=== PATIENT | male | born 1995 | race Caucasian/White ===

== ENCOUNTER 2024-03-26 15:33 | Emergency (ER) | payer OTHER, SELFPAY ==
[2024-03-26 15:51] VITALS: BP 122/60; PULSE 75; RESP 20; TEMP 36.2; O2SAT 95; BMI 26.4
--- OUTSIDE RECORDS SUMMARY | 2024-03-26 16:52 | XMS_ITS | Continuity of Care Document ---
Author Organization [facility] Address [address] [place] [address] Phone Support Name Relationship Address Phone MARIANNA LATHAM Life [place] [address] Pcp-Tamera, Primary Care Provider Unknown Ravinder Mendiola Emergency Provider [place] [address] Allergies, Adverse Reactions, Alerts Allergen Type Severity Reaction Last Updated Verified Status ibuprofen Allergy Unknown UNKNOWN REACTION November 18, 2019 Yes Active Dairy Allergy Unknown UNKNOWN REACTION November 18, 2019 No Active Medications Medication Status Dose Units Route Sig Qty Days Start Date End Date Instructions Acetaminophen Active 1 - 2 TAB Oral EVERY 6 HOURS 30 November 18, 2019 8:55pm Take 1-2 500 mg tablets every 6 hours for increased fever. Acetaminophen Active 1 - 2 TAB Oral EVERY 6 HOURS 30 November 18, 2019 8:58pm Problems Active Problems Medical Problem Onset Date Status Viral illness Active Procedures Procedure Date Performed Status XR chest 1V portable November 18, 2019 active Influenza Virus Type A Antigen November 18, 2019 completed Influenza Virus Type B Antigen November 18, 2019 completed Relevant Diagnostic Tests and/or Laboratory Data Laboratory Results Test Date/Time Result Interpretation Reference Range Result Comment Performing Site Add-On Test Request November 18, 2019 9:15pm Added test [address] [address] White Blood Count November 18, 2019 6:55pm 9.9 X10 3/uL 4.5-11.[address] [address] Red Blood Count November 18, 2019 6:55pm 4.72 X10 6/uL 4.00-5.[address] [address] Hemoglobin November 18, 2019 6:55pm 15.5 g/dl 13.0-17.0 [facility] [place], [address] [facility] [place] [address] Hematocrit November 18, 2019 6:55pm 42.5 % 37.5-50.0 [facility] [place], [address] [facility] [address] Mean Corpuscular Volume November 18, 2019 6:55pm 90.0 fl 80.0-100.0 [facility] [place], [address] [facility] [address] Mean Corpuscular Hemoglobin November 18, 2019 6:55pm 32.8 pg 27.0-34.0 [facility] [place], [address] [facility] [place] [address] Mean Corpuscular Hemoglobin Concent November 18, 2019 6:55pm 36.5 g/dl 31.0-36.0 [facility] [place], [address] [facility] [place] [address] Red Cell Distribution Width November 18, 2019 6:55pm 11.8 % 11.5-15.0 [facility] [place], [address] [facility] [place] [address] Platelet Count November 18, 2019 6:55pm 285 X10 3/uL 150-400 [facility] [place], [address] [facility] [address] Neutrophils (%) (Auto) November 18, 2019 6:55pm 85.5 % [facility] [place], [address] [facility] [place] [address] Lymphocytes (%) (Auto) November 18, 2019 6:55pm 10.1 % [facility] [place], [address] [facility] [place] [address] Monocytes (%) (Auto) November 18, 2019 6:55pm 4.1 % [facility] [place], [address] [facility] [address] Eosinophils (%) (Auto) November 18, 2019 6:55pm 0.1 % [facility] [place], [address] [facility] [place] [address] Basophils (%) (Auto) November 18, 2019 6:55pm 0.2 % [facility] [place], [address] [facility] [place] [address] Neutrophils # (Auto) November 18, 2019 6:55pm 8.5 X10 3/uL 1.5-7.8 [facility] [place], [address] [place] [address] Lymphocytes # (Auto) November 18, 2019 6:55pm 1.0 X10 3/uL 1.0-4.8 [facility] [place], [address] [facility] [address] Monocytes # (Auto) November 18, 2019 6:55pm 0.4 X10 3/uL 0.0-0.8 [facility] [place], [address] [facility] [address] Eosinophils # (Auto) November 18, 2019 6:55pm 0.0 X10 3/uL 0.0-0.5 [facility] [place], [address] [facility] [address] Basophils # (Auto) November 18, 2019 6:55pm 0.0 X10 3/uL 0.0-0.2 [facility] [place], [address] [place] [address] Urine Color November 18, 2019 9:00pm Yellow Yellow [facility] [place], [address] [place] [address] Urine Clarity November 18, 2019 9:00pm Clear Clear [facility] [place], [address] [place] [address] Urine pH November 18, 2019 9:00pm 7.0 5.0-8.0 [facility] [place], [address] [place] [address] Urine Specific [place] November 18, 2019 9:00pm 1.021 1.003-1.03 0 [facility] [place], [address] [place] [address] Urine Blood November 18, 2019 9:00pm Negative mg/dl Negative [facility] [place], [address] [place] [address] Urine Protein November 18, 2019 9:00pm Negative mg/dl Negative [facility] [place], [address] [facility] [address] Urine Glucose (UA) November 18, 2019 9:00pm Negative mg/dl Negative [facility] [place], [address] [place] [address] Urine Ketones November 18, 2019 9:00pm Small mg/dl Negative [facility] [place], [address] [facility] [address] Urine Nitrate November 18, 2019 9:00pm Negative Negative [facility] [place], [address] [place] [address] Urine Bilirubin November 18, 2019 9:00pm Negative mg/dl Negative [facility] [place], [address] [place] [address] Urine Urobilinogen November 18, 2019 9:00pm Normal mg/dl Normal [facility] [place], [address] [place] [address] Urine Leukocyte Esterase November 18, 2019 9:00pm Negative Negative [facility], [address] [place] [address] Sodium Level November 18, 2019 6:55pm 135 mmol/L 137-146 [facility] [place], [address] [place] [address] Potassium Level November 18, 2019 6:55pm 3.6 mmol/L 3.5-5.3 [facility] [place], [address] [place] [address] Chloride Level November 18, 2019 6:55pm 99 mmol/L 98-107 [facility], [address] [place] [address] Carbon Dioxide Level November 18, 2019 6:55pm 23 mmol/L 23-32 [facility] [place], [address] [place] [address] Anion Gap November 18, 2019 6:55pm 13 mmol/L 5-15 [facility] [place], [address] [place] [address] Blood Urea Nitrogen November 18, 2019 6:55pm 13 mg/dl 5-25 [facility], [address] [place] [address] Creatinine November 18, 2019 6:55pm 0.7 mg/dL 0.6-1.4 [facility], [address] [place] [address] Estimated Creatinine Clearance November 18, 2019 6:55pm 135.7 ml/min This value is calculated by Cockcroft Gault Equation using ideal body weight. This result is dependent on an accurate patient height and weight which is obtained from patients medical record. Audreyofruss, Greg.W. and M.H. Gault. Prediction of creatinine clearance from serum creatinine. Nephron. 1976. 16(1):31-41. [facility], [address] [place] [address] Estimated GFR () November 18, 2019 6:55pm > 60 >[address] [place] [address] Estimated GFR (Non- November 18, 2019 6:55pm > 60 >[address] [address] BUN/Creatinine Ratio November 18, 2019 6:55pm 18.6 10.0-20.[address] [address] Glucose Level November 18, 2019 6:55pm 124 mg/dL 70-[address] [address] Calcium Level November 18, 2019 6:55pm 9.1 mg/dl 8.6-10.[address] [address] Magnesium Level November 18, 2019 6:55pm 1.8 mg/dL 1.8-2.[address] [address] Total Bilirubin November 18, 2019 6:55pm 0.7 mg/dl <1.[address] [address] Aspartate Amino Transf (AST/SGOT) November 18, 2019 6:55pm 16 U/L 15-[address] [address] Alanine Aminotransfera se (ALT/SGPT) November 18, 2019 6:55pm 11 U/L 14-[address] [address] Total Protein November 18, 2019 6:55pm 7.0 g/dL 6.4-8.[address] [address] Albumin November 18, 2019 6:55pm 4.7 g/dl 4.0-5.[address] [address] Albumin/Globul in Ratio November 18, 2019 6:55pm 2.0 1.0-2.[address] [address] Alkaline Phosphatase November 18, 2019 6:55pm 75 U/L 40-[address] [address] Lipase November 18, 2019 6:55pm 7 U/L 13-[address] [address] Urine Amphetamines Screen November 18, 2019 9:00pm Negative Negative Amphetamines Cutoff level 1000 ng/mL. [address] [address] Urine Methadone Screen November 18, 2019 9:00pm Negative Negative Methadone Cutoff level 300 ng/mL [address] [address] Urine Oxycodone Screen November 18, 2019 9:00pm Negative Negative Oxycontin/Oxycod one Cutoff level 100 ng/mL [address] [address] Urine Buprenorphine Screen November 18, 2019 9:00pm Negative Negative Buprenorphine Cutoff level 5 ng/mL [address] [address] Salicylates Level November 18, 2019 6:55pm < 1.0 mg/dL Salicylate Reference Range: Negative <1.0 mg/dL Therapeutic Range: 2.0-20.0 mg/dL [address] [address] Urine Opiates Screen November 18, 2019 9:00pm Negative Negative Opiate Cutoff level 300 ng/mLOxycontin/O xycodone is not detected below the threshold of20,000 ng/mL [address] [address] Urine Fentanyl Screen November 18, 2019 9:00pm Positive Negative Confirmation by GC/MS not routinely performed. If confirmation is required, an order must be placed.Fentanyl Cutoff level 2.0 ng/mL [address] [address] Acetaminophen Level November 18, 2019 6:55pm < 5 ug/mL Acetaminophen Reference Range: Negative <5 ug/mL [address] [address] Urine Benzodiazepine s Screen November 18, 2019 9:00pm Positive Negative Please note that the current method for benzodiazepines may be less sensitive to lorazapam detection than previously. If this result is negative and you are concerned about a false negative result for lorazepam, additional testing is possible. Please contact the laboratory.Confi rmation by GC/MS not routinely performed. If confirmation is required, an order must be placed.Benzodiaz epine Cutoff level 200 ng/mL [facility], [address] [place] [address] Urine Cocaine Screen November 18, 2019 9:00pm Negative Negative Cocaine Cutoff level 300 ng/mL [facility], [address] [place] [address] Urine Cannabinoids Screen November 18, 2019 9:00pm Positive Negative Confirmation by GC/MS not routinely performed. If confirmation is required, an order must be placed.THC Cutoff level 50 ng/mLThis report is intended for use in clinical monitoring and management of patients. It is not intended for use in employment related drug testing or court related proceedings. Samples are not routinely tested for adulteration and are assumed to be within the normal physiological pH range of 5 - 8. [facility], [address] [place] [address] Serum Alcohol November 18, 2019 6:55pm < 10 mg/dl <[address] [address] Microbiology Results Procedure Source Result Collection Date/Time Result Date/Time Result Comment Performing Site Influenza Virus Type A Antigen Nares, Both Left & Right November 18, 2019 9:00pm November 18, 2019 9:31pm [facility], [address] [place] [address] Influenza Virus Type B Antigen Nares, Both Left & Right November 18, 2019 9:00pm November 18, 2019 9:31pm [facility], [address] [place] [address] Advance Directives Advance Directive Response Recorded Date/ Time Advance Directives No November 17 020 10:14pm Health Care Proxy No November 17 10:14pm Chief Complaint and Reason for Visit Chief Complaint fever Encounters Encounter Location(s) Arrival/Admit Date Discharge/Depart Date Provider(s) Departed Emergency [facility] - [facility] November 18, 2019 6:13pm November 18, 2019 10:29pm null Assessments No Assessments Information Available Functional Status No Functional Status information available Goals Acute Goals Discharge home. I recommend increased fluids to prevent dehydration. Would recommend Tylenol instead of ibuprofen products. This includes Aleve, Motrin. Self quarantine for 14 days, return to the emergency department medially if you develop worsening of your symptoms, worsening fever, especially difficulty breathing or shortness of breath that is increasing in fevers that are difficult to control with Tylenol. Return if you begin develop nausea vomiting or severe weakness to the point where you cannot function. If your coronavirus swab is positive you will be notified. Mental Status No Mental Status Information Available Medical Equipment No Medical Equipment Information available Insurance Providers Guarantor Wilbur Hollis Address [address] [facility] [address] Contact Info. Home Phone: Payer Policy Id Coverage Id Subscriber's Name Subscriber Id Effective Date Expiration Date [employer] (Medicaid) JOHN LOPEZ [place] Admin by Health Plans [id number] Self Pay Self N/A Plan of Treatment Future Tests Future scheduled test information is unavailable Pending Tests Pending diagnostic test information is unavailable Future Visits Future appointment information is unavailable Referrals to Other Providers Reason for Referral Referral Start Date Provider Provider Contact Information Provider Address Md Pcp-None Future Procedures Future procedure information is unavailable Future Medications Future medication information is unavailable Patient Instructions Patient instructions are unavailable Social History Smoking Status Status Date of Observation Smoker (finding) November 18, 2019 10: 25pm Observation Status Observation Response Date of Response Lives With Family November 18, 2019 10:25pm Assigned Sex Male Vital Signs Vital Reading Result Reference Range Collection Date/Time Height 177.8 cm November 17 0 10:15pm Weight 58.96 kg November 17 0 10:15pm Body Temperature 98.4 [degF] 97.6-99.6 November 18, 2019 10:25pm Heart Rate 84 /min 60-90 November 17 0 10:25pm Respiratory rate 18 /min 12-24 November 18, 2019 10:25pm Oxygen saturation by Pulse oximetry 99 % 95-100 November 18, 2019 10: 25pm BP Systolic 137 mm[Hg] 90-140 November 17 0 10:25pm BP Diastolic 68 mm[Hg] 60-90 November 17 0 10:25pm BMI (Body Mass Index) 18.7 kg/m2 November 18, 2019 10:15pm
--- OUTSIDE RECORDS SUMMARY | 2024-03-26 16:52 | XMS_ITS | Continuity of Care Document ---
[facility] Organization [facility] Address [address] [place] [address] Phone Care Team Providers Care Block Press Operator Name Role Phone MD Jerrica Reyna Family Provider Caitlyn Vizcaino Primary Care Provider MD Arslan Meza Emergency Provider Unavaila ble Care Teams Patient Care Team Team Status: Active Member Role Status Dates Jerrica Veloz MD Family Provider Active Caitlyn Vizcaino Primary Care Provider Active Visit Care Team Team Status: Inactive Member Role Status Dates Jerrica Veloz MD Family Provider Active Start: October 10, 2023 End: October 12, 2023 Carrillo Morris Primary Care Provider Active Start : October 10, 2023 End: October 12, 2023 Arslan Bolton MD Emergency Provider Active Start: October 10, 2023 End: October 12, 2023 Chief Complaint and Reason for Visit Chief Complaint SI Allergies, Adverse Reactions, Alerts Allergen Type Severity Reaction Last Updated Verified Status ibuprofen Allergy Unknown UNKNOWN REACTION October 10, 2023 7:45pm Yes Active Milk Containing Products (Dairy) Allergy Unknown Unknown October 11, 2023 1:32pm Yes Active Social History Smoking Status Status Start Date End Date Date of Observa tion Unknown if ever smoked Febru norbert2023 10:15pm Observation Status Observation Response Date of Response Lives With Alone October 11 11:55am Living Situation Homeless October 11, 2023 11:55am Additional Data Assigned Sex Male Problems Active Problems Medical Problem Onset Date Status Suicidal ideation Active Inactive/Resolved Problems Medical Problem Onset Date Status Alcohol dependence Resolved Alcohol abuse Resolved Viral illness Resolved Medications Medication Status Dose Units Route Directions Qty Days St art Date End Date Instructions Gabapentin Active 600 MG PO THREE NAINA ES A DAY 2023 12:00am Quetiapine Active 100 MG PO ONCE KEVIN Y AT BEDTIME 2023 12:00am Buspirone Active 10 MG PO THREE TIME S A DAY 2023 12:00am Fluoxetine Active 20 MG PO THREE NAINA ES A DAY 2023 12:00am Buprenorphine -Naloxone (Suboxone) 8-2 mg film Active 1 FILM SL TWICE A DAY 2023 12:00am Suvorexant (Belsomra) 10 mg tablet Active 10 MG PO DAILY 2023 12:00am Acetaminophen Discontin ued 1 - 2 TAB PO EVERY 6 HOURS November 17, 2019 11:00pm 2023 1:16pm Take 1-2 500 mg tablets every 6 hours for increased fever. Acetaminophen Discontin ued 1 - 2 TAB PO EVERY 6 HOURS November 17, 2019 11:00pm 2023 1:16pm Relevant Diagnostic Tests and/or Laboratory Data Laboratory Results Test Date/Time Result Interpretation Reference Range Result Comment Performing Site White Blood Count October 10, 2023 7:45pm 8.6 X10 3/uL 4.5-11.0 [facility] [id number] [address] [facility] [id number] Red Blood Count October 10, 2023 7:45pm 4.93 X10 6/uL 4.00-5.50 [facility] [id number] [address] [place] [address] 39414 Hemoglobin October 10, 2023 7:45pm 15.3 g/dl 13.0-17.0 [facility] [id number] [address] [facility] 729[address] Hematocrit October 10, 2023 7:45pm 45.7 % 37.5-50.0 [facility] [id number] [address] [place] [address] 39725 Mean Corpuscular Volume October 10, 2023 7:45pm 92.7 fl 80.0-100.0 [facility] [id number] [address] [place] [address] 49550 Mean Corpuscular Hemoglobin October 10, 2023 7:45pm 31.0 pg 27.0-34.0 [facility] [id number] [address] [place] [address] 74765 Mean Corpuscular Hemoglobin Concent October 10, 2023 7:45pm 33.5 g/dl 31.0-36.0 [facility] [id number] [address] [place] [address] 37801 Red Cell Distribution Width October 10, 2023 7:45pm 12.6 % 11.5-15.0 [facility] [id number] [address] [place] [address] 72681 Platelet Count October 10, 2023 7:45pm 305 X10 3/uL 150-400 [facility] [id number] [address] [place] [address] 11837 Immature Granulocyte % (Auto) October 10, 2023 7:45pm 0.2 % [facility] [id number] [address] [place] [address] 39878 Neutrophils (%) (Auto) October 10, 2023 7:45pm 77.0 % [facility] [id number] [address] [place] [address] 31963 Lymphocytes (%) (Auto) October 10, 2023 7:45pm 16.3 % [facility] [id number] [address] [place] [address] 82796 Monocytes (%) (Auto) October 10, 2023 7:45pm 5.9 % [facility] [id number] [address] [place] [address] 91508 Eosinophils (%) (Auto) October 10, 2023 7:45pm 0.1 % [facility] [id number] [address] [place] [address] 51932 Basophils (%) (Auto) October 10, 2023 7:45pm 0.5 % [facility] [id number] [address] [place] [address] 48016 Immature Granulocyte # (Auto) October 10, 2023 7:45pm 0.02 X10 3/uL 0.00-0.09 [facility] [id number] [address] [place] [address] 98790 Neutrophils # (Auto) October 10, 2023 7:45pm 6.6 X10 3/uL 1.5-7.8 [facility] [id number] [address] [place] [address] 97517 Lymphocytes # (Auto) October 10, 2023 7:45pm 1.4 X10 3/uL 1.0-4.8 [facility] [id number] [address] [place] [address] 20571 Monocytes # (Auto) October 10, 2023 7:45pm 0.5 X10 3/uL 0.0-0.8 [facility] [id number] [address] [place] [address] 79476 Eosinophils # (Auto) October 10, 2023 7:45pm 0.0 X10 3/uL 0.0-0.5 [facility] [id number] [address] [place] [address] 03619 Basophils # (Auto) October 10, 2023 7:45pm 0.0 X10 3/uL 0.0-0.2 [facility] [id number] [address] [place] [address] 94361 Nucleated Red Blood Cells % October 10, 2023 7:45pm 0.0 /100 WBC 0.0-0.0 [facility] [id number] [address] [place] [address] 00042 Sodium Level October 10, 2023 7:45pm 138 mmol/L 137-146 [facility] [id number] [address] [place] [address] 54996 Potassium Level October 10, 2023 7:45pm 3.3 mmol/L 3.5-5.3 [facility] [id number] [address] [place] [address] 31149 Chloride Level October 10, 2023 7:45pm 95 mmol/L 98-107 [facility] [id number] [address] [place] [address] 86788 Carbon Dioxide Level October 10, 2023 7:45pm 28 mmol/L 23-32 [facility] [id number] [address] [place] [address] 65837 Anion Gap October 10, 2023 7:45pm 15 mmol/L - [facility] [id number] [address] [facility] 613[address] Blood Urea Nitrogen October 10, 2023 7:45pm 14 mg/dl 01-15 [facility] [id number] [address] [facility] 75693 Creatinine October 10, 2023 7:45pm 0.7 mg/dL 0.6-1.4 [facility] [id number] [address] [place] [address] 90599 Estimated Creatinine Clearance October 10, 2023 7:45pm Accounting Administrator Unable to Calculate CRCL,Ht and/or Wt missing [facility] [id number] [address] [place] [address] 80213 Estimat Glomerular Filtration Rate October 10, 2023 7:45pm 129 >90 Reported eGFR is based on the CKD-EPI 2020 equation that does not use a race coefficient. Additional information can be found at:[id number] [email or web address] [email or web address] ([email or web address].org) [facility] [id number] [address] [place] [address] 17270 BUN/Creatinine Ratio October 10, 2023 7:45pm 20.0 10.0-20.0 [facility] [id number] [address] [place] [address] 12753 Glucose Level October 10, 2023 7:45pm 82 mg/dL 70-100 [facility] [id number] [address] [place] [address] 32370 Calcium Level October 10, 2023 7:45pm 9.7 mg/dl 8.6-10.3 [facility] [id number] [address] [place] [address] 07514 Total Bilirubin October 10, 2023 7:45pm 0.7 mg/dl <1.1 [facility] [id number] [address] [place] [address] 09583 Aspartate Amino Transf (AST/SGOT) October 10, 2023 7:45pm 40 U/L 15- [facility] [id number] [address] [place] [address] 59972 Alanine Aminotransfera se (ALT/SGPT) October 10, 2023 7:45pm 17 U/L 14-63 [facility] [id number] [address] [place] [address] 19566 Total Protein October 10, 2023 7:45pm 8.1 g/dL 6.4-8.3 [facility] [id number] [address] [place] [address] 21020 Albumin October 10, 2023 7:45pm 4.9 g/dl 4.0-5.0 [facility] [id number] [address] [place] [address] 33347 Albumin/Globul in Ratio October 10, 2023 7:45pm 1.5 1.0-2.6 [facility] [id number] [address] [place] [address] 74237 Alkaline Phosphatase October 10, 2023 7:45pm 126 U/L 40-129 [facility] [id number] [address] [place] [address] 33032 Urine Amphetamines Screen October 10, 2023 7:45pm Negative Negative Amphetamines Cutoff level 1000 ng/mL. [facility] [id number] [address] [place] [address] 75369 Urine Methadone Screen October 10, 2023 7:45pm Negative Negative Methadone Cutoff level 300 ng/mL [facility] [id number] [address] [place] [address] 36542 Urine Oxycodone Screen October 10, 2023 7:45pm Negative Negative Oxycontin/Oxycod one Cutoff level 100 ng/mL [facility] [id number] [address] [place] [address] 84570 Urine Buprenorphine Screen October 10, 2023 7:45pm Positive Negative Confirmation by GC/MS not routinely performed for Non-Maternity locations. If confirmation is required, an order must be placed.Buprenorp chang Cutoff level 5 ng/mL [facility] [id number] [address] [place] [address] 59077 Salicylates Level October 10, 2023 7:45pm < 1.0 mg/dL Salicylate Reference Range: Negative <1.0 mg/dL Therapeutic Range: 2.0-20.0 mg/dL [facility] [id number] [address] [place] [address] 01469 Urine Opiates Screen October 10, 2023 7:45pm Negative Negative Opiate Cutoff level 300 ng/mLOxycontin/O xycodone is not detected below the threshold of20,000 ng/mL [facility] [id number] [address] [place] [address] Urine Fentanyl Screen October 10, 2023 7:45pm Negative Negative Fentanyl Cutoff level 2.0 ng/mL [facility] [id number] [address] [place] [address] 57547 Acetaminophen Level October 10, 2023 7:45pm < 5 ug/mL Acetaminophen Reference Range: Negative <5 ug/mL [facility] [id number] [address] [place] [address] Urine Benzodiazepine s Screen October 10, 2023 7:45pm Negative Negative Please note that the current method for benzodiazepines may be less sensitive to lorazapam detection than previously. If this result is negative and you are concerned about a false negative result for lorazepam, additional testing is possible. Please contact the laboratory.Benzo diazepine Cutoff level 200 ng/mL [facility] [id number] [address] [place] [address] Urine Cocaine Screen October 10, 2023 7:45pm Negative Negative Cocaine Cutoff level 300 ng/mL [facility] [id number] [address] [place] [address] Urine Cannabinoids Screen October 10, 2023 7:45pm Positive Negative Confirmation by GC/MS not routinely performed for Non-Maternity locations. If confirmation is required, an order must be placed.THC Cutoff level 50 ng/mLThis report is intended for use in clinical monitoring and management of patients. It is not intended for use in employment related drug testing or court related proceedings. Samples are not routinely tested for adulteration and are assumed to be within the normal physiological pH range of 5 - 8. [facility] [id number] [address] [place] [address] 58294 Serum Alcohol October 10, 2023 7:45pm 60 mg/dl <10 [facility] [id number] [address] [place] [address] Vital Signs Vital Reading Result Reference Range Collection Date/Time Body Temperature 98 [degF] 97.6-99.6 October 122023 8:00am Heart Rate 88 /min 60-90 October 12, 2023 8:00am Respiratory rate 18 /min 12-24 October 122023 8:00am Oxygen saturation by Pulse oximetry 97 % 95-100 October 12, 2023 8:00am BP Systolic 120 mm[Hg] 90-140 October 12, 2023 8:00am BP Diastolic 88 mm[Hg] 60-90 October 12, 2023 8:00am Advance Directives Advance Directive Response Recorded Date/ Time Advance Directives No September 7:32pm Health Care Proxy No October 11, 2023 11:55am Insurance Providers Guarantor Wilbur Hillonald Address [address] [facility] [address] Contact Info. Home Phone: Payer Policy Id Coverage Id Subscriber's Name Subscriber Id Effective Date Expiration Date [facility] (Medicaid) [id number] Wilbur Hollis [id number] Cigna [id number] Wilbur Shafer [id number] [place] Admin by Health Plans [id number] Self Pay Self N/A Encounters Encounter Location(s) Arrival/Admit Date Discharge/Depart Date Provider(s) Departed Emergency [facility] October 10, 2023 7:31pm October 12, 2023 10:07am null Mental Status Observation Response Date Recorded Patient Behavior Cooperative October 11, 2023 11:55am Crying October 11 11:55am Restless October 11 11:55am Plan of Treatment Future Tests Future scheduled test information is unavailable Pending Tests Pending diagnostic test information is unavailable Future Visits Future appointment information is unavailable Referrals to Other Providers Reason for Referral Referral Start Date Provider Provider Contact Information Provider Address Caitlyn Vizcaino Future Procedures Procedure Name Ordered Date Scheduled Date ED Assign to Observation October 10, 2023 10:14pm October 10, 2023 10:14pm Crisis Team Consult October 10, 2023 7:59pm F ebruary 2023 7:59pm Section 12a Temporary Involu ntary Hospitalization Application October 11, 2023 11:55am October 11, 2023 11:55am Future Medications Future medication information is unavailable Patient Instructions Patient instructions are unavailable Discharge Summary Note Author Brenda Jimenez [facility] October 12, 2023 8:08am Note Date/Time October 12, 2023 8:08am [address] [address] Emergency Room Obsv DC Summary Signed Patient: Wilbur Shafer Medical Record#: [id number] : 1995 Acct:[id number] Age/Sex: 27 / M Admit/Reg Date: 10/10/23 Loc: ED. Room: Report Number: [id number]: Arslan Bolton MD ED OBS: BH Discharge General Appearance: Present: NAD, WD/WN Respiratory: Present: No respiratory distress Cardiovascular: Present: R/R/R Skin: Present: Warm, Dry Psych: Present: Calm Neuro: Present: Nonfocal, Motor grossly normal MDM: IPLOC Psych Observation Course/Relevant Labs/Exam: Pt accepted by [facility]. No further issues during ER stay. SEction 12a and transfer completed (Brenda Villa) Vital Signs: Vital Signs Temperature 98 F 10/10/23 19:41 Pulse Rate 105 H 10/10/23 19:41 Respiratory Rate 16 10/10/23 19:41 Blood Pressure 124/78 10/10/23 19:41 O2 Sat by Pulse Oximetry 98 10/10/23 19:41 Temperature 98 F 10/10/23 19:41 Pulse Rate 96 H 10/11/23 15:15 Respiratory Rate 16 10/11/23 15:15 Blood Pressure 126/68 10/11/23 15:15 O2 Sat by Pulse Oximetry 95 10/11/23 15:15 ED OBS: Discharge - Discharge End of Observation Date: 10/12/23 End of Observation Time: 08:08 - Discharge Clinical Impression: Suicidal ideation Disposition: Admit to ED Observation Referrals: Caitlyn Vizcaino [Other] Dictated By: Brenda Villa MD Signed By: Brenda Villa MD 10/12/23807 DD/ 6 TD/TT: 10/12/23 08 Educational Guidance Counselor: RADHA cc: * Progress Note Author Monty Jimenez [facility] October 11, 2023 11:56am Note Date/Time October 10, 2023 7:59pm [address] [address] Emergency Department Document Signed with Yordan Patient: Wilbur Shafer Medical Record#: [id number] : 1995 Acct:[id number] Age/Sex: 27 / M Admit/Reg Date: 10/10/23 Loc: ED. Room: Report Number: [id number]: Arslan Bolton MD ADDENDUM Section 12 completed by al Addendum Dictated By: Monty Clemente MD Addendum Signed By: <Electronically signed by Monty Clemente MD> 10/11/231155 Addendum Cosigned By: DD/ TD/TT: 10/11/23 ADDENDUM Patient was evaluated by mental health services will recommending inpatient psychiatric stabilization. Addendum Dictated By: Monty Clemente MD Addendum Signed By: <Electronically signed by Monty Clemente MD> 10/11/231154 Addendum Cosigned By: DD/ TD/TT: 10/11/23 <Janet Cali - Last Filed: 10/10/23 22:13> Arrival - Arrival ED Triage Note: Pt bobby from the street. Pt called after girlfriend broke up with him and threw him out. Pt states he cannot be homeless and is making SI statements. Pt is tearful on arrival History of Present Illness Chief Complaint: Psychiatric Symptoms Stated Complaint: SI Nursing note reviewed: Yes Source: patient Exam/History Limitations: no limitations Primary Care Provider: Caitlyn Vizcaino History of Present Illness: 27-year-old male, past medical history seizures presents complaining of suicidalideation. Patient states he had a plan but did not act on it. Patient states he was depressed because he broke up with his girlfriend and has been homeless for 4 days. No medical complaints. Patient states he did smoke marijuana and drink alcohol today. No HI. No auditory hallucinations, no visual hallucinations, no delusions. Allergies/Adverse Reactions: ibuprofen Allergy (Unknown, Verified 10/10/23 19:45) UNKNOWN REACTION Dairy Allergy (Unknown, Uncoded 10/10/23 19:45) UNKNOWN REACTION Review of Systems Constitutional: Denies: fever Cardiovascular: Denies: chest pain Respiratory: Denies: shortness of breath Gastrointestinal: Denies: vomiting Integumentary: Denies: rash Neurological: Denies: headache Psychiatric: Reports: anxiety, depression, suicidal, substance abuse. Denies: homicidal, hallucinations Allergic/Immunologic: Denies: itching Past Medical/Surgical History Medical History: Medical History (Last Reviewed 10/10/23 @ 19:43 by Zully Hicks) Patient denies significant medical history (Medical) Family/Social History - Social History Living Situation: Apartment Current or Hx of Recreational Drug use: Yes 1. How Often Do You Have a Drink Containing Alcohol: a. Never Physical Exam General Appearance: NAD, WD/WN, Cooperative, Ambulatory Eyes: Vision grossly intact Ears: Hearing grossly intact Nose: No nasal discharge Mouth/Throat: Mucosa moist Neck: Supple Respiratory: No respiratory distress Cardiovascular: R/R/R, No Murmurs Abdominal: Soft, Non-tender Extremity/Musculoskeletal: Non-tender Skin: Warm, Dry Psych: Anxious, States SI Neuro: A&O X 3, Nonfocal Results/Orders - Results and Orders Result diagrams: 10/10/23 19:45 10/10/23 19:45 MDM/COURSE - MDM Medical decision making narrative: 10/10/23 19:58 27-year-old male, past medical history seizures presents complaining of suicidalideation. He states he had a plan, but did not act on it. He did drink alcoholand smoke marijuana today. He offers no medical complaints. Plan to have patient evaluated by crisis. Medical screening labs have been obtained. Patient is placed on continuous observation for safety. 10/10/23 21:03 Labs reviewed. No medical contraindication to crisis evaluation and placement at this time. 10/10/23 22:13 Signed out pending crisis evaluation and disposition. Will assign to ED obs. <Arslan Bolton - Last Filed: 10/10/23 23:11> History of Present Illness Primary Care Provider: Caitlyn Vizcaino Past Medical/Surgical History Medical History: Medical History (Last Reviewed 10/10/23 @ 19:43 by Zully Hicks) Patient denies significant medical history (Medical) Physical Exam Triage Vital Signs: Temperature 98 F 10/10/23 19:41 Temperature Source Oral 10/10/23 19:41 Pulse Rate 105 H 10/10/23 19:41 Respiratory Rate 16 10/10/23 19:41 Blood Pressure 124/78 10/10/23 19:41 Blood Pressure Source Automatic Cuff 10/10/23 19:41 Blood Pressure Mean 93 10/10/23 19:41 Blood Pressure Position Supine 10/10/23 19:41 O2 Sat by Pulse Oximetry 98 10/10/23 19:41 Oxygen Delivery Method Room Air 10/10/23 19:41 Sepsis Action Taken by Nursing No Action Required 10/10/23 19:41 Results/Orders - Results and Orders Result diagrams: 10/10/23 19:45 10/10/23 19:45 Lab Testing & Results 10/10/23 19:45: WBC 8.6, RBC 4.93, Hgb 15.3, Hct 45.7, MCV 92.7, MCH 31.0, MCHC 33.5, RDW 12.6, Plt Count 305, Immature Gran % (Auto) 0.2, Neut % (Auto) 77.0, Lymph % (Auto) 16.3, Thayer % (Auto) 5.9, Eos % (Auto) 0.1, Baso % (Auto) 0.5, Neut # (Auto) 6.6, Lymph # (Auto) 1.4, Thayer # (Auto) 0.5, Eos # (Auto) 0.0, Baso# (Auto) 0.0, Immature Gran # (Auto) 0.02, Nucleated RBC % 0.0, Sodium 138, Potassium 3.3 L, Chloride 95 L, Carbon Dioxide 28, Anion Gap 15, BUN 14, Creatinine 0.7, Estimated Creat Clear Accounting Administrator, Estimated GFR 129, BUN/Creatinine Ratio 20.0, Glucose 82, Calcium 9.7, Total Bilirubin 0.7, AST 40, ALT 17, Alkaline Phosphatase 126, Total Protein 8.1, Albumin 4.9, Albumin/Globulin Ratio1.5, Salicylates < 1.0, Urine Opiates Screen Negative, Ur Buprenorphine Scrn Positive H, Ur Oxycodone Screen Negative, Urine Methadone Screen Negative, UrineFentanyl Screen Negative, Acetaminophen < 5, Ur Amphetamines Screen Negative, U Benzodiazepines Scrn Negative, Urine Cocaine Screen Negative, U Cannabinoids Screen Positive H, Serum Alcohol 60 H MDM/COURSE Vital Signs Temperature 98 F 10/10/23 19:41 Pulse Rate 105 H 10/10/23 19:41 Respiratory Rate 16 10/10/23 19:41 Blood Pressure 124/78 10/10/23 19:41 O2 Sat by Pulse Oximetry 98 10/10/23 19:41 Temperature 98 F 10/10/23 19:41 Pulse Rate 105 H 10/10/23 19:41 Respiratory Rate 16 10/10/23 19:41 Blood Pressure 124/78 10/10/23 19:41 O2 Sat by Pulse Oximetry 98 10/10/23 19:41 Attending - FLORENTINO: Attending Note FLORENTINO: ED Attending Attestation: Yes Attending Attestation Statement: I personally evaluated this patient face to face and made/approved the evaluation and treatment plan and take responsibilityfor the patient management. Discharge Plan - Discharge Clinical Impression: Suicidal ideation Disposition: Admit to ED Observation Prescriptions: No Action acetaminophen 500 MG tablet 1 - 2 tab PO Q6H PRN (Reason: Fever >101) Qty: 30 RF: 0 acetaminophen 500 MG tablet 1 - 2 tab PO Q6H PRN (Reason: Fever >101) Qty: 30 RF: 0 Referrals: Caitlyn Vizcaino [Other] Print Language: American - Discharge Data Time Seen by Provider: 10/10/23 19:38 Dictated By: SYDNEY Martinez Signed By: Janet Cali 10/10/23 221 Arslan Bolton MD 10/10/232310 DD/ 55 TD/TT: 10/10/231955 Educational Guidance Counselor: TRAVIS cc: Caitlyn Vizcaino* Caitlyn Vizcaino Progress Note Author Janet Cali [facility] October 11, 2023 1:30pm Note Date/Time October 10, 2023 10:15pm [address] [address] Emergency Room Admission Notes Signed with Addenda Patient: Wilbur Shafer Medical Record#: [id number] : 1995 Acct:[id number] Age/Sex: 27 / M Admit/Reg Date: 10/10/23 Loc: ED. Room: Report Number: [id number]: Arslan Bolton MD ADDENDUM Patient was seen by crisis and deemed inpatient level of care. Patient's home medications have been reconciled. Addendum Dictated By: SYDNEY Cali Addendum Signed By: <Electronically signed by SYDNEY Cali> 10/11/231329 Addendum Cosigned By: DD/ TD/TT: 10/11/23 ED OBS: BH Initial Note Family History Of: None Reported Smoking Status: Current some day smoker (smokes marijuan) 1. How Often Do You Have a Drink Containing Alcohol: d. 2-3 Times a Week Patient Was Placed into ED Obs For:: Suicidal Ideation Treatment Plan: Psychiatry Evaluation Vital Signs: Vital Signs Temperature 98 F 10/10/23 19:41 Pulse Rate 105 H 10/10/23 19:41 Respiratory Rate 16 10/10/23 19:41 Blood Pressure 124/78 10/10/23 19:41 O2 Sat by Pulse Oximetry 98 10/10/23 19:41 Temperature 98 F 10/10/23 19:41 Pulse Rate 105 H 10/10/23 19:41 Respiratory Rate 16 10/10/23 19:41 Blood Pressure 124/78 10/10/23 19:41 O2 Sat by Pulse Oximetry 98 10/10/23 19:41 History: Please refer to the emergency department record for complete patient history. Physical Exam: Please refer to the emergency department record for complete physical exam. Discharge Problem: Suicidal ideation Dictated By: SYDNEY Martinez Signed By: Janet Cali 10/10/232214 Arslan Bolton MD 10/10/232310 DD/ 13 TD/TT: 10/10/232213 Educational Guidance Counselor: TRAVIS cc: * Progress Note Author Bobbi Jimenez [facility] October 12, 2023 2:03am Note Date/Time October 12, 2023 2:03am [address] [address] Emergency Room Obsv Prog Note Signed Patient: Wilbur Shafer Medical Record#: [id number] : 1995 Acct:[id number] Age/Sex: 27 / M Admit/Reg Date: 10/10/23 Loc: ED. Room: Report Number: [id number]: Arslan Bolton MD ED OBS: BH Progress Note Encounter Date: 10/12/23 Encounter Time: 02:03 General Appearance: Present: NAD Respiratory: Present: No respiratory distress Psych: Present: Calm Neuro: Present: Nonfocal Behavioral Management: Continued Psychiatric Evaluation Plan: Continued Search for Bed Interval History: naeon (Bobbi Stanton) Vital Signs: Vital Signs Temperature 98 F 10/10/23 19:41 Pulse Rate 105 H 10/10/23 19:41 Respiratory Rate 16 10/10/23 19:41 Blood Pressure 124/78 10/10/23 19:41 O2 Sat by Pulse Oximetry 98 10/10/23 19:41 Temperature 98 F 10/10/23 19:41 Pulse Rate 96 H 10/11/23 15:15 Respiratory Rate 16 10/11/23 15:15 Blood Pressure 126/68 10/11/23 15:15 O2 Sat by Pulse Oximetry 95 10/11/23 15:15 Dictated By: Bobbi Stanton MD Signed By: Bobbi Stanton MD 10/12/23202 DD/ 2 TD/TT: 10/12/23202 Educational Guidance Counselor: [id number] cc: *
--- OUTSIDE RECORDS SUMMARY | 2024-03-26 16:52 | XMS_ITS | Continuity of Care Document ---
Author Organization [facility] Address [address] [place] [address] Phone Support Name Relationship Address Phone MARIANNA LATHAM Life [place] [address] Pcp-Tamera, Primary Care Provider Unknown Ravinder Mendiola Emergency [place] [address] Allergies, Adverse Reactions, Alerts Allergen Type Severity [...] Request November 18, 2019 9:15pm Added test [address] [address] White Blood Count November 18, 2019 6:55pm 9.9 X10 3/uL 4.5-11.[address] [address] Red Blood Count November 18, 2019 6:55pm 4.72 X10 6/uL 4.00-5.[address] [address] Hemoglobin November 18, 2019 6:55pm 15.5 g/dl 13.0-17.0 [facility] [place], [address] [facility] [address] Hematocrit November 18, 2019 6:55pm 42.5 % 37.5-50.0 [facility] [place], [address] [facility] [place] [address] Mean Corpuscular Volume November 18, 2019 6:55pm 90.0 fl 80.0-100.0 [facility] [place], [address] [facility] [address] Mean Corpuscular Hemoglobin November 18, 2019 6:55pm 32.8 pg 27.0-34.0 [facility] [place], [address] [facility] [address] Mean Corpuscular Hemoglobin Concent November 18, 2019 6:55pm 36.5 g/dl 31.0-36.0 [facility] [place], [address] [facility] [place] [address] Red Cell Distribution Width November 18, 2019 6:55pm 11.8 % 11.5-15.0 [facility] [place], [address] [facility] [address] Platelet Count November 18, 2019 6:55pm 285 X10 3/uL 150-400 [facility] [place], [address] [facility] [address] Neutrophils (%) (Auto) November 18, 2019 6:55pm 85.5 % [facility] [place], [address] [facility] [place] [address] Lymphocytes (%) (Auto) November 18, 2019 6:55pm 10.1 % [facility] [place], [address] [facility] [place] [address] Monocytes (%) (Auto) November 18, 2019 6:55pm 4.1 % [facility] [place], [address] [facility] [place] [address] Eosinophils (%) (Auto) November 18, 2019 6:55pm 0.1 % [facility] [place], [address] [facility] [place] [address] Basophils (%) (Auto) November 18, 2019 6:55pm 0.2 % [facility] [place], [address] [facility] [place] [address] Neutrophils # (Auto) November 18, 2019 6:55pm 8.5 X10 3/uL 1.5-7.8 [facility] [place], [address] [place] [address] Lymphocytes # (Auto) November 18, 2019 6:55pm 1.0 X10 3/uL 1.0-4.8 [facility] [place], [address] [facility] [address] Monocytes # (Auto) November 18, 2019 6:55pm 0.4 X10 3/uL 0.0-0.8 [facility] [place], [address] [facility] [address] Eosinophils # (Auto) November 18, 2019 6:55pm 0.0 X10 3/uL 0.0-0.5 [facility] [place], [address] [facility] [address] Basophils # (Auto) November 18, 2019 6:55pm 0.0 X10 3/uL 0.0-0.2 [facility] [place], [address] [place] [address] Urine Color November 18, 2019 9:00pm Yellow Yellow [facility] [place], [address] [place] [address] Urine Clarity November 18, 2019 9:00pm Clear Clear [facility] [place], [address] [place] [address] Urine pH November 18, 2019 9:00pm 7.0 5.0-8.0 [facility] [place], [address] [place] [address] Urine Specific [place] November 18, 2019 9:00pm 1.021 1.003-1.03 0 [facility] [place], [address] [place] [address] Urine Blood November 18, 2019 9:00pm Negative mg/dl Negative [facility] [place], [address] [place] [address] Urine Protein November 18, 2019 9:00pm Negative mg/dl Negative [facility] [place], [address] [facility] [address] Urine Glucose (UA) November 18, 2019 9:00pm Negative mg/dl Negative [facility] [place], [address] [place] [address] Urine Ketones November 18, 2019 9:00pm Small mg/dl Negative [facility] [place], [address] [facility] [address] Urine Nitrate November 18, 2019 9:00pm Negative Negative [facility] [place], [address] [place] [address] Urine Bilirubin November 18, 2019 9:00pm Negative mg/dl Negative [facility] [place], [address] [place] [address] Urine Urobilinogen November 18, 2019 9:00pm Normal mg/dl Normal [facility] [place], [address] [place] [address] Urine Leukocyte Esterase November 18, 2019 9:00pm Negative Negative [facility], [address] [place] [address] Sodium Level November 18, 2019 6:55pm 135 mmol/L 137-146 [facility] [place], [address] [place] [address] Potassium Level November 18, 2019 6:55pm 3.6 mmol/L 3.5-5.3 [facility] [place], [address] [place] [address] Chloride Level November 18, 2019 6:55pm 99 mmol/L 98-107 [facility], [address] [place] [address] Carbon Dioxide Level November 18, 2019 6:55pm 23 mmol/L 23-32 [facility] [place], [address] [place] [address] Anion Gap November 18, 2019 6:55pm 13 mmol/L 5-15 [facility] [place], [address] [place] [address] Blood Urea Nitrogen November 18, 2019 6:55pm 13 mg/dl 5-25 [facility], [address] [place] [address] Creatinine November 18, 2019 6:55pm 0.7 mg/dL 0.6-1.4 [facility], [address] [place] [address] Estimated Creatinine Clearance November 18, 2019 6:55pm 135.7 ml/min This value is calculated by Cockcroft Gault Equation using ideal body weight. This result is dependent on an accurate patient height and weight which is obtained from patients medical record. Audreyofruss, Greg.W. and M.H. Gault. Prediction of creatinine clearance from serum creatinine. Nephron. 1976. 16(1):31-41. [facility], [address] [place] [address] Estimated GFR () November 18, 2019 6:55pm > 60 >[address] [place] [address] Estimated GFR (Non- November 18, 2019 6:55pm > 60 >[address] [address] BUN/Creatinine Ratio November 18, 2019 6:55pm 18.6 10.0-20.[address] [address] Glucose Level November 18, 2019 6:55pm 124 mg/dL 70-[address] [address] Calcium Level November 18, 2019 6:55pm 9.1 mg/dl 8.6-10.[address] [address] Magnesium Level November 18, 2019 6:55pm 1.8 mg/dL 1.8-2.[address] [address] Total Bilirubin November 18, 2019 6:55pm 0.7 mg/dl <1.[address] [address] Aspartate Amino Transf (AST/SGOT) November 18, 2019 6:55pm 16 U/L 15-[address] [address] Alanine Aminotransfera se (ALT/SGPT) November 18, 2019 6:55pm 11 U/L 14-[address] [address] Total Protein November 18, 2019 6:55pm 7.0 g/dL 6.4-8.[address] [address] Albumin November 18, 2019 6:55pm 4.7 g/dl 4.0-5.[address] [address] Albumin/Globul in Ratio November 18, 2019 6:55pm 2.0 1.0-2.[address] [address] Alkaline Phosphatase November 18, 2019 6:55pm 75 U/L 40-[address] [address] Lipase November 18, 2019 6:55pm 7 U/L 13-[address] [address] Urine Amphetamines Screen November 18, 2019 9:00pm Negative Negative Amphetamines Cutoff level 1000 ng/mL. [address] [address] Urine Methadone Screen November 18, 2019 9:00pm Negative Negative Methadone Cutoff level 300 ng/mL [address] [address] Urine Oxycodone Screen November 18, 2019 9:00pm Negative Negative Oxycontin/Oxycod one Cutoff level 100 ng/mL [address] [address] Urine Buprenorphine Screen November 18, 2019 9:00pm Negative Negative Buprenorphine Cutoff level 5 ng/mL [address] [address] Salicylates Level November 18, 2019 6:55pm < 1.0 mg/dL Salicylate Reference Range: Negative <1.0 mg/dL Therapeutic Range: 2.0-20.0 mg/dL [address] [address] Urine Opiates Screen November 18, 2019 9:00pm Negative Negative Opiate Cutoff level 300 ng/mLOxycontin/O xycodone is not detected below the threshold of20,000 ng/mL [address] [address] Urine Fentanyl Screen November 18, 2019 9:00pm Positive Negative Confirmation by GC/MS not routinely performed. If confirmation is required, an order must be placed.Fentanyl Cutoff level 2.0 ng/mL [address] [address] Acetaminophen Level November 18, 2019 6:55pm < 5 ug/mL Acetaminophen Reference Range: Negative <5 ug/mL [address] [address] Urine Benzodiazepine s Screen November 18, 2019 [...] be placed.Benzodiaz epine Cutoff level 200 ng/mL [facility], [address] [place] [address] Urine Cocaine Screen November 18, 2019 9:00pm Negative Negative Cocaine Cutoff level 300 ng/mL [facility], [address] [place] [address] Urine Cannabinoids Screen November 18, 2019 9:00pm [...] physiological pH range of 5 - 8. [facility], [address] [place] [address] Serum Alcohol November 18, 2019 6:55pm < 10 mg/dl <[address] [address] Microbiology Results Procedure Source Result Collection Date/Time Result Date/Time Result Comment Performing Site Influenza Virus Type A Antigen Nares, Both Left & Right November 18, 2019 9:00pm November 18, 2019 9:31pm [facility], [address] [place] [address] Influenza Virus Type B Antigen Nares, Both Left & Right November 18, 2019 9:00pm November 18, 2019 9:31pm [facility], [address] [place] [address] Advance Directives Advance Directive Response Recorded Date/ Time Advance Directives No November 17 020 10:14pm Health Care Proxy No November 17 10:14pm Chief Complaint and Reason for Visit Chief Complaint fever Encounters Encounter Location(s) Arrival/Admit Date Discharge/Depart Date Provider(s) Departed Emergency [facility] - [facility] November 18, 2019 6:13pm November 18, [...] Insurance Providers Guarantor Wilbur Hollis Address [address] [facility] [facility] [address] Contact Info. Home Phone: Payer Policy Id Coverage Id Subscriber's Name Subscriber Id Effective Date Expiration Date [employer] (Medicaid) JOHN LOPEZ [place] Admin by Health Plans [id number] Self Pay Self N/A Plan of Treatment [...]
[2024-03-26 18:24] LABS: Amphetamine Screen Urine Not Detected (Not Detect); Barbiturates, Urine Not Detected (Not Detect); Benzodiazepines Screen Urine Not Detected (Not Detect); Buprenorphine Scr Positive (Not Detect); Cannabinoid Screen Urine POSITIVE (Not Detect); Cocaine Screen Urine Not Detected (Not Detect); Fentanyl, urine Not Detected (Not Detect); Methadone Screen, Urine Not Detected (Not Detect); Opiate Screen Urine Not Detected (Not Detect); Oxycodone Screen Urine Not Detected (Not Detect); Phencyclidine Screen Urine Not Detected (Not Detect)
--- NOTE | 2024-03-26 18:36 | PC.NURSE ---
patient given dinner tray
--- NOTE | 2024-03-26 18:38 | ED_ITS ---
HPI - Medical Clearance General Chief complaint: Medical Clearance Stated complaint: substance abuse Time Seen by Provider: 03/26/24 15:59 Source: patient and EMS Mode of arrival: EMS Limitations: no limitations History of Present Illness ED Provider: Dr. Cheryl Domingo HPI Narrative: Patient comes to the emergency room via [facility] [place]. According to EMS, the staff caught the patient's smoking marijuana and they are requesting a urine toxicology test. Patient states that he was about started smoking marijuana. Patient denies using any other drugs. Patient states that he has no complaints. Related Information Allergies Allergy/AdvReac Type Severity Reaction Status Date / Time No Known Allergies Allergy Verified 03/26/24 15:53 Review of Systems Review of Systems: Constitutional : No Weight loss, No Fever, No Chills, No Night Sweats, No Fatigue, No Malaise ENT/Mouth : No Hearing loss, No Ear Pain, No Nasal Congestion, No Sinus Pain, No Hoarseness, No sore throat, No Rhinorrhea, No Swallowing Difficulty Eyes: No Eye Pain, No Swelling, No Redness, No Foreign Body, No Discharge, No Vision Changes Cardiovascular : No Chest Pain, No SOB, No Dyspnea on Exertion, No Orthopnea, No Edema, No Palpitations Respiratory : No Cough, No Sputum, No Wheezing, No Smoke Exposure, No Dyspnea Gastrointestinal : No Nausea, No Vomiting, No Diarrhea, No Constipation, No abdominal Pain, No Hematochezia, No Melena Genitourinary : no irregular bleeding, No Dysuria, No Urinary Frequency, No Hematuria, No Urinary Incontinence, No Urgency, No Flank Pain, No Urinary Flow Changes, No Hesitancy Musculoskeletal : No joint pain, No Myalgias, No Joint Swelling Skin : No Skin Lesions, No rash Neuro : No Weakness, No Numbness, No Paresthesias, No Loss of Consciousness, No Dizziness, No Headache Psych : No Anxiety/Panic, No Depression, No SI/HI/AH/VH, admits to using marijuana Heme/Lymph: No Bruising, No Bleeding,No Lymphadenopathy Endocrine : No Polyuria, No Polydipsia, No Temperature Intolerance PMFSH Social History Social History Advance Directives: No Advance Directives Information Provided: No Physical Exam Vital Signs: Vital Signs: Last Vital Signs Temp 97.2 F 03/26/24 15:51 Pulse 75 03/26/24 15:51 Resp 20 03/26/24 15:51 BP 122/60 03/26/24 15:51 Pulse Ox 95 03/26/24 15:51 O2 Del Method Room Air 03/26/24 15:51 BMI result Body Mass Index 26.4 Const: Other: Appearance: Alert. Oriented X3. No acute distress. Eyes: Pupils equal, round and reactive to light. ENT: Pharynx normal. Neck: Normal inspection. Neck supple. No lymph nodes noted. No crepitus CVS: Normal heart rate and rhythm. Pulses normal. Normal S1 and S2 Respiratory: No respiratory distress. Breath sounds normal. No Wheezing. No rales Abdomen: Soft and nontender. No rigidity. No distention. Skin: Skin warm and dry. Normal skin color. Normal skin turgor. Extremities: No lower extremity edema. No Lacerations. No Rash Neuro: Oriented X 3. No motor deficit. No sensory deficit. Moving all extremities. No slurred speech. CN 2 through 12 grossly intact Psych: calm, cooperative, normal affect Medical Decision Making Medical Decision Making MDM Narrative: My interpretation of labs: Toxicology positive for buprenorphine which she gets prescribed. U tox positive for marijuana -patient facility was contacted, they are agreeable ap[facility] take the patient back Lab Data Labs: Lab Results 03/26/24 Range/Units 18:06 Urine Opiates Screen Not Detected (Not Detect) Ur Buprenorphine Scrn Positive H (Not Detect) ng/mL Ur Oxycodone Screen Not Detected (Not Detect) ng/mL Urine Methadone Screen Not Detected (Not Detect) ng/mL Urine Fentanyl Screen Not Detected (Not Detect) Ur Barbiturates Screen Not Detected (Not Detect) Ur Phencyclidine Scrn Not Detected (Not Detect) Ur Amphetamines Screen Not Detected (Not Detect) U Benzodiazepines Scrn Not Detected (Not Detect) Urine Cocaine Screen Not Detected (Not Detect) U Marijuana (THC) Screen POSITIVE H (Not Detect) Discharge Plan Discharge Clinical Impression: Cannabis abuse Patient Disposition: Xfer Other Transfer Details: [facility] Instructions: Cannabis Abuse (ED) Additional Instructions: The urine was positive for buprenorphine and marijuana. Please follow-up with your primary care physician tomorrow. If you have any worsening or new symptoms, please return to the emergency room or call 911 Print Language: Kazakh
[2024-03-26 18:56] VITALS: BP 101/54; PULSE 60; RESP 20; TEMP 36.6; O2SAT 95
--- NOTE | 2024-03-26 19:19 | PC.NURSE ---
This RN assumed pt care @ 1900. Pt resting in bed quietly, no signs of distress. Pt has a sitter. Plan of care ongoing.
--- NOTE | 2024-03-26 20:13 | PC.NURSE ---
This RN called [facility]x to give nurse report, no answer. Plan of care ongoing.
[2024-03-26 21:08] VITALS: BP 135/65; PULSE 68; RESP 20; TEMP 36.6; O2SAT 95
[2024-03-26 21:18] VITALS: BP 135/65; PULSE 62; RESP 12; TEMP 36.6; O2SAT 94
== END 2024-03-26 21:20 | disposition other institution (70) ==
PROVIDERS: Emergency Provider Emergency Medicine
DX: Z02.83 Encounter for blood-alcohol and blood-drug test (principal); F12.10 Cannabis abuse, uncomplicated
CPT/HCPCS: 80307; 99283; 99284